=== PATIENT | male | born 1975 | race Caucasian/White ===

== ENCOUNTER 2016-11-29 10:08 | Outpatient (CLI) | payer BC ==
[2016-11-29 12:48] LABS: #Basophils 0.1 thou/uL (0.0-0.2); #Eosinphils 0.1 thou/uL (0.0-0.7); #Lymphocytes 1.6 thou/uL (1.20-3.40); #Monocytes 0.4 thou/uL (0.11-0.59); #Neutrophils 3.5 thou/uL (1.40-6.50); %Basophils 1.1 % (0.0-1.0); %Eosinophils 1.5 % (0.0-10.0); %Lymphocytes 27.8 % (21.0-51.0); %Monocytes 7.8 % (0.0-10.0); Mean Platelet Volume 8.6 fL (7.4-10.4); Red Blood Cell (RBC) Count 4.51 mill/uL (4.70-6.10); White Blood Cell (WBC) Count 5.7 thou/uL (4.8-10.8)
[2016-11-29 13:09] LABS: ALT (SGPT) 14 U/L (8-55); AST (SGOT) 21 U/L (5-34); Alkaline Phosphatase 88 U/L (40-150); Anion Gap 10 mmol/L (10-20); BUN (Urea Nitrogen) 19 mg/dL (8.9-20.6); Bilirubin, Total 0.2 mg/dL (0.2-1.2); Calc. Creatinine Clearance 0 mL/min (70-130); Calcium 8.8 mg/dL (7.8-10.44); Carbon Dioxide 27 mmol/L (22-29); Chloride 105 mmol/L (98-107); Estimated GFR-MDRD 68; Globulin 3.1 g/dL (2.4-3.5); Protein, Total 7.1 g/dL (6.0-8.3)
== END 2016-11-29 10:09 | disposition home or self-care (01) ==
LOC: LABBT 10:08
PROVIDERS: ATTEND Surgery
DX: Z01.812 Encounter for preprocedural laboratory examination (principal); K64.2 Third degree hemorrhoids
CPT/HCPCS: 80053; 85025

== ENCOUNTER 2016-12-03 06:55 | Day surgery (SDC) | payer BC ==
[2016-11-29 10:22] VITALS: BMI 27.1
[2016-12-03] MEDS ORDERED: Sodium Chloride 0.9% 100 ML ONE (08:31)
[2016-12-03] MEDS ORDERED: Midazolam HCl 2 mg/2 ml Vial ONE ×2 (08:36→09:10)
[2016-12-03] MEDS ORDERED: Bupivacaine 0.25% HCL 30 ML VIAL ONE (09:07)
[2016-12-03] MEDS ORDERED: Bacitracin Zinc Ointment 30 gm TUBE ONE (09:07)
[2016-12-03] MEDS ORDERED: Fentanyl 100 MCG/2 ML VIAL ONE ×4 (09:10→11:11)
[2016-12-03] MEDS ORDERED: Ondansetron HCl/PF 4 MG/2 ML Vial ONE (09:28)
[2016-12-03] MEDS ORDERED: ePHEDrine/0.9% NaCl/PF SYRINGE 50 mg/10 ml ONE (09:28)
[2016-12-03] MEDS ORDERED: Dexamethasone 20 MG/5 ML VIAL ONE (09:28)
[2016-12-03] MEDS ORDERED: Propofol 200 MG/20 ML VIAL ONE (09:28)
[2016-12-03] MEDS ORDERED: Glycopyrrolate 0.2 MG/ML 5 ML SYRINGE ONE (09:28)
[2016-12-03] MEDS ORDERED: Ketorolac Tromethamine 30 MG/ML VIAL ONE (09:28)
[2016-12-03] MEDS ORDERED: Lidocaine 1% PF 5 ML VIAL ONE (09:28)
--- NOTE | 2016-12-03 10:29 | OP ---
PREOPERATIVE DIAGNOSIS: Bleeding grade III hemorrhoids. SURGEON: Lan Beavers M.D. PROCEDURE PERFORMED: PPH staple hemorrhoidectomy. INDICATIONS: This is a 41-year-old male who has been having prolapsing bleeding hemorrhoids and he was found to have grade III hemorrhoids. FINDINGS: Grade III hemorrhoids. PROCEDURE IN DETAIL: After informed consent was obtained, the patient was taken to the operating ro om. He had undergone mechanical bowel prep at home. He was given general endotracheal anesthesia a nd placed in the prone jackknife position. Buttock and cheeks were spread apart with tape. Local a nesthesia infiltrated subcutaneously and deep with 0.5% Marcaine as a four quadrant anal block. The protective anal retractor was inserted within the anal canal and sutured in place with interrupted 2-0 silk suture. Then, the pursestring guide was inserted and a pursestring was placed in the recta l mucosa circumferentially with a 2-0 Prolene suture. The stapler was opened maximally. The anvil advanced beyond the pursestring. The strings were brought through channels on the stapler with the yanci hook. They were tied as an air knot. This was then closed while the pursestring was mainta ined closed and fired. It was held for 30 seconds, released for 30 seconds, and removed. The speci men inspected. There was no muscle fiber, was sent to pathology for further analysis. Hemostasis w as achieved. The staple line inspected. There was no bleeding. Gelfoam was inserted and a sterile bandage applied. The patient tolerated the procedure well and transferred to recovery in good cond ition. Sponge and needle count verified correct x2.
[2016-12-03] MEDS ORDERED: HYDROcodone/Acetaminophen 5/325 mg Tablet ONE (12:06)
== END 2016-12-03 13:11 | disposition home or self-care (01) ==
LOC: SDC 06:55
PROVIDERS: ATTEND Surgery
PROC: 06BY3ZC Excision of Hemorrhoidal Plexus, Percutaneous Approach (ICD-10-PCS; principal; 2016-12-03)
DX: K64.2 Third degree hemorrhoids (principal); F41.8 Other specified anxiety disorders; K21.9 Gastro-esophageal reflux disease without esophagitis; G25.0 Essential tremor; Z79.899 Other long term (current) drug therapy; Z88.8 Allergy status to other drugs, medicaments and biological substances; Z98.890 Other specified postprocedural states; Z98.818 Other dental procedure status; Z87.442 Personal history of urinary calculi; Z85.828 Personal history of other malignant neoplasm of skin; Z80.8 Family history of malignant neoplasm of other organs or systems
CPT/HCPCS: 88304; 96374; J0694; J1100; J1885; J2001; J2250; J2405; J2704; J3010; J7050; S0020

== ENCOUNTER 2018-02-27 13:23 | Outpatient (CLI) | payer OTHER ==
--- NOTE | 2018-02-27 14:15 | RAD ---
PA AND LATERAL VIEWS CHEST: HISTORY: Wheezing, cough, and chest tightness. FINDINGS: The heart size is normal. The lungs are expanded without focal areas of consolidation, pneumothorace s, or pleural effusions. IMPRESSION: No radiographic evidence of acute cardiopulmonary process. POS: OFF
== END 2018-02-27 13:24 | disposition home or self-care (01) ==
LOC: SCSRAD 13:23
PROVIDERS: ATTEND Nurse Practitioner Family
DX: R05 Cough (principal)
CPT/HCPCS: 71046

== ENCOUNTER 2018-07-11 12:09 | Outpatient (CLI) | payer OTHER ==
--- NOTE | 2018-07-11 13:19 | MRI ---
MRI of the brain without contrast 07/11/2018 COMPARISON: None HISTORY: Tremors TECHNIQUE: Multiplanar multisequence MR imaging of the brain obtained without contrast FINDINGS: Normal T2 signal intensity identified within the brainstem. No midline shift or mass effect . No ventricular enlargement. The diffusion weighted imaging demonstrates no evidence for acute infarction. The axial gradient echo imaging demonstrates no evidence for intracranial hemorrhage. There are numerous foci of increased T2 and FLAIR signal within the deep white matter and subcortical white matter of bilateral frontal and parietal lobes. The imaged paranasal sinuses and mastoid air cells demonstrate mild mucosal thickening of bilateral ethmoid air cells. Arterial flow voids at the axial level of the skull base appear grossly unremarkable on the T2-weighted imaging. IMPRESSION: Multiple nonspecific foci of increased T2/FLAIR signal within the white matter. Findings may be seen on the basis of advanced small vessel disease, demyelinating disease, vasculitis, Lyme disease, etc. Clinical correlation is essential.
== END 2018-07-11 12:10 | disposition home or self-care (01) ==
LOC: SCSMRI 12:09
DX: G25.0 Essential tremor (principal)
CPT/HCPCS: 70551

== ENCOUNTER 2018-09-15 14:46 | Outpatient (CLI) | payer OTHER ==
[~2018-09-15 14:46] MED LIST: Gadobenate Dimeglumine 529 MG/1 ML (20ML VIAL) ONE
--- NOTE | 2018-09-15 16:46 | MRI ---
MRI cervical spine with and without contrast: DATE: 09/15/2018 HISTORY: 43-year-old male with cervicalgia COMPARISON: Noncontrast C-spine MRI of 04/08/2015. FINDINGS: Vertebral body heights are maintained. No high-grade disc space narrowing at any level. 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 Otherwise, normal bone marrow signal. No high-grade facet DJD in the cervical spine. Mild to moderate disc space narrowing at C6-7. The rest of the disc spaces are maintained. Alignment is normal. Cervical spinal cord is normal in size and signal. No syringohydromyelia. No abnormal enhancement or mass in the intramedullary, extramedullary-intradural, extradural, intraosseous, or perivertebral, spaces (the exception is enhancement of the benign hemangioma mentioned above). C1-2: No central stenosis. C2-3: Mild right facet DJD. Otherwise normal. C3-4: No central stenosis. No right neural foraminal stenosis. Small bilateral uncinate process osteo phytes. Disc space maintained. Mild left facet DJD. Moderate-severe left neural foraminal stenosis. No significant change. C4-5: No central stenosis. Small bilateral uncinate process osteophytes. Moderate bilateral neural fo raminal stenosis, left greater than right. C5-6: Shallow, small central, right paracentral, and right lateral disc-osteophyte complex encroaches upon the right anterior aspect of the spinal canal causing slight counterclockwise rotation of the spinal cord. Small bilateral uncinate process osteophytes. Mild bilateral neural foraminal stenosis. Mild central spinal canal stenosis. No significant interval change. C6-7: Previously, a right lateral focal disc herniation-extrusion was impinging on the right C7 nerve root. That focal disc herniation has decreased in size. Currently there is a small right paracentral-lateral disc-osteophyte complex which causes mild to moderate stenosis of the proximal as pect of the right neural foramen. The impingement on the right C7 nerve root is milder than before. This is contiguous with central component of disc-osteophyte complex. Overall moderate degree of cent ral spinal canal stenosis. No high-grade left neural foraminal stenosis. C7-T1: Central and right paracentral small chronic disc extrusion with midline superior migration of disc material a short distance is unchanged in appearance. Does not contact the spinal cord or nerve roots. No significant central spinal canal stenosis or neural foraminal stenosis. No interval c hange. C7-T1: No central or neural foraminal stenosis. IMPRESSION: 1. Mild cervical spondylosis. 2. Interval decrease in size of the previously demonstrated right lateral disc herniation at C6-7. Cu rrently there is lesser degree of right neural foraminal stenosis and lesser degree of impingement on the right C7 nerve root than before. 3. Neural foraminal stenosis at certain levels.
== END 2018-09-15 14:47 | disposition home or self-care (01) ==
LOC: SCSMRI 14:46
DX: M54.2 Cervicalgia (principal); M47.812 Spondylosis without myelopathy or radiculopathy, cervical region; M48.02 Spinal stenosis, cervical region; M50.223 Other cervical disc displacement at C6-C7 level
CPT/HCPCS: 72156; A9577

== ENCOUNTER 2019-04-14 08:11 | Outpatient (CLI) | payer OTHER ==
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
== END 2019-04-14 08:12 | disposition home or self-care (01) ==
LOC: TBSIIMAG 08:11
PROVIDERS: ATTEND Neurological Surgery
DX: M51.14 Intervertebral disc disorders with radiculopathy, thoracic region (principal); M47.812 Spondylosis without myelopathy or radiculopathy, cervical region; D18.09 Hemangioma of other sites
CPT/HCPCS: 72146

== ENCOUNTER 2019-04-29 07:39 | Outpatient (CLI) | payer OTHER ==
[2019-04-29 10:29] LABS: Hemoglobin 14.9 g/dL (14.0-18.0); Mean Corpuscular HGB CONC 32.1 g/dL (32.0-36.0); Mean Corpuscular Hemoglobin 29.9 pg (27.0-31.0); Mean Corpuscular Volume 93.1 fL (78.0-98.0); Mean Platelet Volume 8.8 fL (7.4-10.4); Platelet Count 237 thou/uL (130-400); RBC Distribution Width 12.1 % (11.5-14.5); Red Blood Cell (RBC) Count 4.97 mill/uL (4.70-6.10); White Blood Cell (WBC) Count 6.7 thou/uL (4.8-10.8)
[2019-04-29 10:48] LABS: Anion Gap 12 mmol/L (10-20); BUN (Urea Nitrogen) 15 mg/dL (8.9-20.6); Calc. Creatinine Clearance 0 mL/min (70-130); Calcium 9.6 mg/dL (7.8-10.44); Carbon Dioxide 30 mmol/L (22-29); Chloride 102 mmol/L (98-107); Estimated GFR-MDRD 68; Glucose 96 mg/dL (70-105); Potassium 4.1 mmol/L (3.5-5.1); Sodium 140 mmol/L (136-145)
--- NOTE | 2019-04-30 08:30 | EKG ---
Test Reason : Blood Pressure : / mmHG Vent. Rate : 080 BPM Atrial Rate : 080 BPM P-R Int : 102 ms QRS Dur : 126 ms QT Int : 344 ms P-R-T Axes : 057 104 060 degrees QTc Int : 396 ms Sinus rhythm with short OK Right bundle branch block Septal infarct , age undetermined Abnormal ECG No previous ECGs available Confirmed by DR. Gabby CULP ([id number]) on 04/30/2019 8:29:59 AM Referred By: PRISCILLA Confirmed By:DR. Gabby CULP
== END 2019-04-29 07:40 | disposition home or self-care (01) ==
LOC: LABBT 07:39
PROVIDERS: ATTEND Neurological Surgery
DX: Z01.818 Encounter for other preprocedural examination (principal); M54.12 Radiculopathy, cervical region
CPT/HCPCS: 80048; 85027; 93005; 93010

== ENCOUNTER 2019-05-04 07:54 | Day surgery (SDC) | payer OTHER ==
[2019-04-29 08:48] VITALS: BMI 29.0
[2019-05-04] MEDS ORDERED: Midazolam HCl 2 mg/2 ml Vial ONE ×2 (09:42→09:48)
[2019-05-04] MEDS ORDERED: Fentanyl 100 MCG/2 ML VIAL ONE ×5 (09:48→12:05)
--- NOTE | 2019-05-04 11:29 | OP ---
DATE OF PROCEDURE: 05/04/2019 PIE CUTTER: Shena Sierra PA-C PROCEDURE PERFORMED: Anterior cervical diskectomy C5-C6 and C6-C7, interbody arthrodesis, intervertebral biomechanical device, local morselized autograft, demineralized bone matrix, anterior titanium instrumentation C5-C6 and C6-C7. DESCRIPTION OF PROCEDURE: The patient was brought to the operating room and intubated. He was positioned supine with head in modest extension on gel-filled donut. Incision was made in the right precervical area and dissected medial to the sternocleidomastoid muscle, identified the anterior cervical spinal, and the level was confirmed by x-ray. We debrided the anterior osteophytes, placed distraction across the disk space and using the operating microscope and microdissection techniques, completely debrided the intervertebral disks at C5-C6 and C6-C7. The bony endplates were then decorticated for the purpose of arthrodesis and appropriately-sized intervertebral biomechanical PEEK device was then brought into the field and filled with demineralized bone matrix and local morselized autograft, and tapped in place securely at C5-C6 and C6-C7. Next, an anterior plate was brought into the field and secured to C5, C6, and C7 using two 14-mm screws at each level. The wound was then extensively irrigated and MAC hemostasis was secured and the wound was closed in anatomic layers. Job ID: [id number]
[2019-05-04] MEDS ORDERED: Lidocaine 1% PF 5 ML VIAL ONE (11:37)
[2019-05-04] MEDS ORDERED: Esmolol 100 MG/10 ML VIAL ONE (11:37)
[2019-05-04] MEDS ORDERED: Rocuronium Bromide 10 MG/ML (10ML VIAL) ONE (11:37)
[2019-05-04] MEDS ORDERED: Dexamethasone 20 MG/5 ML VIAL ONE (11:37)
[2019-05-04] MEDS ORDERED: PROPOFOL 200 MG/20 ML VIAL ONE (11:37)
[2019-05-04] MEDS ORDERED: Glycopyrrolate 0.2 MG/ML 5 ML SYRINGE ONE (11:37)
[2019-05-04] MEDS ORDERED: Ketorolac Tromethamine 30 MG/ML VIAL ONE (11:37)
[2019-05-04] MEDS ORDERED: PHENYLEPHRINE-NS 100 MCG/ML 10 ML SYRINGE ONE (11:37)
[2019-05-04] MEDS ORDERED: EPHEDRINE 25 MG/5 ML SYRINGE ONE (11:37)
[2019-05-04] MEDS ORDERED: Succinylcholine Chloride 20 MG/ML 10 ml SYRINGE FS ONE (11:37)
[2019-05-04] MEDS ORDERED: Ondansetron PF 4 MG/2 ML Vial ONE (11:37)
[2019-05-04] MEDS ORDERED: Morphine 4 MG/ML VIAL ONE (11:58)
[2019-05-04] MEDS ORDERED: Morphine 2 MG/ML SYRINGE ONE ×3 (12:08→12:29)
[2019-05-04] MEDS ORDERED: tiZANidine HCl 4 MG TAB ONE (12:48)
[2019-05-04] MEDS ORDERED: HYDROcodone/Acetaminophen 10/325 mg Tablet ONE (14:16)
== END 2019-05-04 14:30 | disposition home or self-care (01) ==
LOC: SDC 07:54
PROVIDERS: ATTEND Neurological Surgery
PROC: 0RG2070 Fusion of 2 or more Cervical Vertebral Joints with Autologous Tissue Substitute, Anterior Approach, Anterior Column, Open Approach (ICD-10-PCS; principal; 2019-05-04)
PROC: 0RG20A0 Fusion of 2 or more Cervical Vertebral Joints with Interbody Fusion Device, Anterior Approach, Anterior Column, Open Approach (ICD-10-PCS; principal; 2019-05-04)
PROC: 0RT30ZZ Resection of Cervical Vertebral Disc, Open Approach (ICD-10-PCS; principal; 2019-05-04)
DX: M47.812 Spondylosis without myelopathy or radiculopathy, cervical region (principal); I10 Essential (primary) hypertension; E78.5 Hyperlipidemia, unspecified; F17.290 Nicotine dependence, other tobacco product, uncomplicated; Z79.899 Other long term (current) drug therapy; Z88.1 Allergy status to other antibiotic agents; Z88.8 Allergy status to other drugs, medicaments and biological substances
CPT/HCPCS: 76000; C1713; C1776; J0690; J1100; J1885; J2001; J2250; J2270; J2405; J2704; J3010; J3490

== ENCOUNTER 2019-05-19 11:40 | Outpatient (CLI) | payer OTHER ==
--- NOTE | 2019-05-19 13:26 | RAD ---
TWO VIEWS OF THE CERVICAL SPINE: DATE: 05/19/2019. HISTORY: Radiculopathy, prior surgery. FINDINGS: Anterior diskectomy and fusion hardware present at C5-6/C6-7. There is posterior osteophyte at C6-7. Mild prevertebral soft tissue prominence noted at the postsurgical site. No anterolisthesis or ret rolisthesis. No radiographic evidence for hardware failure. IMPRESSION: Postoperative and degenerative changes of the cervical spine as detailed above. POS: [facility]
== END 2019-05-19 11:41 | disposition home or self-care (01) ==
LOC: SCSRAD 11:40
PROVIDERS: ATTEND Transplant Surgery
DX: M47.22 Other spondylosis with radiculopathy, cervical region (principal); Z98.890 Other specified postprocedural states
CPT/HCPCS: 72040

== ENCOUNTER 2019-07-06 12:02 | Outpatient (CLI) | payer OTHER ==
--- NOTE | 2019-07-06 14:05 | RAD ---
CERVICAL SPINE 3 VIEWS: INDICATION: Cervical pain. Recent cervical spine surgery. COMPARISON: 05/19/2019. FINDINGS: Postop changes are again noted. Anterior plate and screws remain in place transfixing C5, C6, and C7 . Interbody implants. No change in hardware. Vertebral body height and alignment is maintained and unchanged in appearance. Spondylitic change posteriorly at C6-7 is again seen. This is stable from prior exam. IMPRESSION: Stable cervical spine findings when compared to 05/19/2019. POS: [facility]
== END 2019-07-06 12:03 | disposition home or self-care (01) ==
LOC: SCSRAD 12:02
PROVIDERS: ATTEND Neurological Surgery
DX: M54.12 Radiculopathy, cervical region (principal)
CPT/HCPCS: 72040

== ENCOUNTER 2021-02-20 15:08 | Outpatient (CLI) | payer BC ==
[2021-02-20 22:29] LABS: SARS-CoV-2 PCR by NAA Not Detected (NotDetected)
== END 2021-02-20 15:09 | disposition home or self-care (01) ==
LOC: LABBT 15:08
PROVIDERS: ATTEND Urology
DX: Z01.818 Encounter for other preprocedural examination (principal); Z20.822 Contact with and (suspected) exposure to COVID-19
CPT/HCPCS: 93005; 93010; U0003; U0005

== ENCOUNTER 2021-02-21 10:27 | Day surgery (SDC) | payer BC ==
[2021-02-20 14:35] VITALS: BMI 31.1
[2021-02-21] MEDS ORDERED: Iothalamate Meglumine 60% 50 ML VIAL FS ONE (11:58)
[2021-02-21] MEDS ORDERED: Fentanyl 100 MCG/2 ML VIAL ONE ×2 (12:02→13:12)
[2021-02-21] MEDS ORDERED: ceFAZolin 2 GM/DEX 5% 100 ML BAG ONE (12:06)
[2021-02-21] MEDS ORDERED: Dexamethasone 20 MG/5 ML VIAL ONE (12:11)
[2021-02-21] MEDS ORDERED: Lidocaine 1% PF 5 ML VIAL ONE (12:11)
[2021-02-21] MEDS ORDERED: Ondansetron PF 4 MG/2 ML Vial ONE (12:11)
[2021-02-21] MEDS ORDERED: Glycopyrrolate 0.2 MG/ML 5 ML SYRINGE ONE (12:11)
[2021-02-21] MEDS ORDERED: PROPOFOL 200 MG/20 ML VIAL ONE (12:11)
[2021-02-21] MEDS ORDERED: ePHEDrine 50 MG/ML VIAL ONE (12:11)
[2021-02-21] MEDS ORDERED: Ketorolac Tromethamine 30 MG/ML VIAL ONE (13:03)
[2021-02-21] MEDS ORDERED: Oxybutynin 5 MG TAB ONE (13:03)
[2021-02-21] MEDS ORDERED: Phenazopyridine HCl 100 MG TAB ONE (13:03)
[2021-02-21] MEDS ORDERED: HYDROcodone/Acetaminophen 5/325 mg Tablet ONE (14:16)
[2021-02-27 16:13] LABS: CA Oxalate Dihydrate 40 % (.); CA Oxalate Monohydrate 55 % (.); Color Brown (.); Stone Weight 84 mg (.)
== END 2021-02-21 14:53 | disposition home or self-care (01) ==
LOC: SDC 10:27
PROVIDERS: ATTEND Urology
PROC: 0TC38ZZ Extirpation of Matter from Right Kidney Pelvis, Via Natural or Artificial Opening Endoscopic (ICD-10-PCS; principal; 2021-02-21)
PROC: 0T768DZ Dilation of Right Ureter with Intraluminal Device, Via Natural or Artificial Opening Endoscopic (ICD-10-PCS; principal; 2021-02-21)
PROC: 0TC68ZZ Extirpation of Matter from Right Ureter, Via Natural or Artificial Opening Endoscopic (ICD-10-PCS; principal; 2021-02-21)
DX: N13.2 Hydronephrosis with renal and ureteral calculous obstruction (principal); E78.5 Hyperlipidemia, unspecified; G43.909 Migraine, unspecified, not intractable, without status migrainosus; F17.290 Nicotine dependence, other tobacco product, uncomplicated; G25.0 Essential tremor; E78.00 Pure hypercholesterolemia, unspecified; K21.9 Gastro-esophageal reflux disease without esophagitis; Z79.899 Other long term (current) drug therapy; Z88.1 Allergy status to other antibiotic agents; Z88.8 Allergy status to other drugs, medicaments and biological substances; Z98.1 Arthrodesis status
CPT/HCPCS: 74420; 82365; 88300; C2617; J1100; J1885; J2405; J2704; J3010; J3490; Q9961-U8

== ENCOUNTER 2022-07-11 08:30 | Outpatient (CLI) | payer BC, OTHER ==
[2022-07-11 10:00] LABS: Mean Corpuscular HGB CONC 31.8 g/dL (32.0-36.0); Mean Corpuscular Hemoglobin 27.3 pg (27.0-33.0); Mean Platelet Volume 11.6 fl (7.4-10.4); Platelet Count 207 10x3/uL (150-450); RBC Distribution Width 15.1 % (11.5-14.5); Red Blood Cell (RBC) Count 5.49 10x6/uL (4.32-5.72); White Blood Cell (WBC) Count 6.5 10x3/uL (3.5-10.5)
[2022-07-11 10:10] LABS: PTT 26.2 sec (22.0-33.0); Prothrombin Time 10.9 sec (9.5-12.1)
[2022-07-11 10:15] LABS: Anion Gap 16 mmol/L (10-20); BUN (Urea Nitrogen) 17 mg/dL (8.9-20.6); Calc. Creatinine Clearance 0 mL/min (70-130); Calcium 9.5 mg/dL (7.8-10.44); Carbon Dioxide 26 mmol/L (22-29); Chloride 103 mmol/L (98-107); Estimated GFR 65; Glucose 88 mg/dL (70-105); Potassium 4.5 mmol/L (3.5-5.1); Sodium 140 mmol/L (136-145)
[2022-07-11 12:35] LABS: Platelet Count 189 thou/uL (130-400)
[2022-07-11 13:06] LABS: EPI 110 sec (67-192)
== END 2022-07-11 08:31 | disposition home or self-care (01) ==
LOC: LABBT 08:30
PROVIDERS: ATTEND Urology
DX: Z01.812 Encounter for preprocedural laboratory examination (principal); N20.1 Calculus of ureter
CPT/HCPCS: 80048; 85027; 85576; 85610; 85730; 87086

== ENCOUNTER 2023-04-24 09:08 | Outpatient (CLI) | payer BC ==
[2023-04-24 12:02] LABS: Anion Gap 15 mmol/L (10-20); BUN (Urea Nitrogen) 23 mg/dL (8.9-20.6); Calc. Creatinine Clearance 0 mL/min (70-130); Calcium 9.2 mg/dL (7.8-10.44); Carbon Dioxide 27 mmol/L (22-29); Chloride 99 mmol/L (98-107); Estimated GFR 68; Glucose 98 mg/dL (70-105); Potassium 4.7 mmol/L (3.5-5.1); Sodium 136 mmol/L (136-145)
== END 2023-04-24 09:09 | disposition home or self-care (01) ==
LOC: LABBT 09:08
PROVIDERS: ATTEND Urology
DX: Z01.812 Encounter for preprocedural laboratory examination (principal); N20.1 Calculus of ureter
CPT/HCPCS: 80048; 87086

== ENCOUNTER 2023-04-30 10:07 | Day surgery (SDC) | payer BC ==
[2023-04-24 09:29] VITALS: BMI 28.2
[2023-04-30] MEDS ORDERED: fentaNYL 50 mcg/mL 1 mL Vial ONE ×2 (11:44→13:51)
[2023-04-30] MEDS ORDERED: PROPOFOL 20 ML ONE (11:52)
[2023-04-30] MEDS ORDERED: fentaNYL PF 100 MCG/2 ML SYRINGE ONE ×2 (11:52→14:11)
[2023-04-30] MEDS ORDERED: Sodium Chloride 0.9% 100 ML ONE (11:59)
[2023-04-30] MEDS ORDERED: cefTRIAXone (ROCEPHIN) 2 GM VIAL ONE (11:59)
[2023-04-30] MEDS ORDERED: SUCCINYLCHOLINE/SOD CL,ISO/PF 200 MG/10 ML SYRINGE FS ONE (12:24)
[2023-04-30] MEDS ORDERED: Iopamidol 30 ML ONE (12:24)
[2023-04-30] MEDS ORDERED: Dexamethasone 20 MG/5 ML VIAL ONE (12:37)
[2023-04-30] MEDS ORDERED: Ondansetron PF 4 MG/2 ML Vial ONE (12:37)
[2023-04-30] MEDS ORDERED: SUGAMMADEX SODIUM 200 MG/2 ML VIAL ONE (12:41)
[2023-04-30] MEDS ORDERED: Ketorolac Tromethamine 30 MG (1 mL) VIAL ONE (13:23)
[2023-04-30] MEDS ORDERED: Glycopyrrolate 0.2 MG/ML 5 ML SYRINGE ONE (13:25)
[2023-04-30] MEDS ORDERED: NEOSTIGMINE 3 MG/3 ML SYR 3 MG/3 ML SYRINGE ONE (13:25)
[2023-04-30] MEDS ORDERED: Rocuronium Bromide 10 MG/ML (10ML VIAL) ONE (13:53)
[2023-04-30] MEDS ORDERED: HYDROmorphone 0.5 MG/0.5 ML SYRINGE ONE ×3 (14:32→15:47)
== END 2023-04-30 17:25 | disposition home or self-care (01) ==
LOC: SDC 10:07
PROVIDERS: ATTEND Urology
PROC: 0WCR8ZZ Extirpation of Matter from Genitourinary Tract, Via Natural or Artificial Opening Endoscopic (ICD-10-PCS; principal; 2023-04-30)
PROC: 0T778DZ Dilation of Left Ureter with Intraluminal Device, Via Natural or Artificial Opening Endoscopic (ICD-10-PCS; principal; 2023-04-30)
DX: N20.2 Calculus of kidney with calculus of ureter (principal); E78.5 Hyperlipidemia, unspecified; F98.8 Other specified behavioral and emotional disorders with onset usually occurring in childhood and adolescence; E03.9 Hypothyroidism, unspecified; Z79.890 Hormone replacement therapy; Z88.1 Allergy status to other antibiotic agents; Z88.8 Allergy status to other drugs, medicaments and biological substances; Z79.899 Other long term (current) drug therapy
CPT/HCPCS: 74420; 82365; 88300; 93005; 93010; C1747; C2617; J0696; J1170; J1885; J2405; J2704; J3010; J3490; Q9967